=== PATIENT | female | born 1995 | race Caucasian/White ===

== ENCOUNTER 2018-02-17 16:30 | Emergency (ER) | payer MEDICAID, OTHER ==
[~2018-02-17] VITALS: Ht 152.4 cm; Wt 95.3 kg
--- NOTE | 2018-02-17 16:53 | PHYS DOC ---
Adult General Chief Complaint Chief Complaint: SEIZURE HPI HPI Patient is a 22 year old female who presents with seizure. Patient has a history of seizures. It was reported to EMS that patient has been off of her meds for about one month. Patient was riding in a car with her mother at the time of event. She was incontinent. Mother is not present at time of initial visit. Patient alert and confused. He remained somnolent at this time. Review of Systems Review of Systems Neurologic: Reports headache, generalized tonic-clonic seizure prior to arrival All other systems were unable to be reviewed due to patient's altered mental status. Allergies Allergies Allergies Coded Allergies Type Severity Reaction Last Updated Verified No Known Drug Allergies 02/17/18 No Physical Exam Physical Exam Constitutional: Well developed, well nourished, no acute distress, non-toxic appearance. [] HENT: Normocephalic, atraumatic Eyes: PERRLA, EOMI, conjunctiva normal, no discharge. [] Neck: Normal range of motion, no tenderness, supple, no stridor. [] Cardiovascular:Heart rate regular rhythm, no murmur [] Lungs & Thorax: Bilateral breath sounds clear to auscultation [] Abdomen: Bowel sounds normal, soft, no tenderness, no masses, no pulsatile masses. [] Skin: Warm, dry, no erythema, no rash. [] Neurologic: Alert and oriented X 3, normal motor function, normal sensory function, no focal deficits noted. [] Psychologic: Affect normal, judgement normal, mood normal. [] Current Patient Data Vital Signs Vital Signs Date Time Temp Pulse Resp B/P (MAP) Pulse Ox O2 Delivery O2 Flow Rate FiO2 02/17/18 19:04 90 16 98 02/17/18 16:31 98.4 148/65 (92) Room Air 98.4 EKG EKG [] Radiology/Procedures Radiology/Procedures [] Course & Med Decision Making Course & Med Decision Making Pertinent Labs and Imaging studies reviewed. (See chart for details) Patient alert and oriented. Normal mentation. Patient reports she ran out of her prescription. She has an appointment in 2 days with her PCP. Plan: tegretol rx, f/u with PCP, return precautions reviewed Tomasa Disclaimer Tomasa Disclaimer This electronic medical record was generated, in whole or in part, using a voice recognition dictation system. Departure Departure Impression: Primary Impression: Seizure Disposition: HOME, SELF-CARE Condition: IMPROVED Referrals: UNKNOWN PCP NAME (PCP) Patient Instructions: Seizure, Adult Scripts Carbamazepine (TEGRETOL) 200 Mg Tablet 1000 MG PO BID for 5 Days, #50 TAB Prov: OSCAR DAVIS APRN 02/17/18 OSCAR DAVIS APRN Feb 17, 2018 16:53
[2018-02-17 19:04] VITALS: BP 162/60
[2018-02-17] MEDS ORDERED: CARB200T PO (19:15)
== END 2018-02-17 19:21 | disposition home or self-care (01) ==
LOC: ER 16:30 → EDSEX 16:30 → ER 19:21
DX: R56.9 Unspecified convulsions (principal); R41.0 Disorientation, unspecified
CPT/HCPCS: 99283

== ENCOUNTER 2019-06-26 14:51 | Emergency (ER) | payer OTHER ==
[~2019-06-26] VITALS: Ht 149.9 cm; Wt 95.3 kg
[~2019-06-26 14:51] MED LIST: CARB200T PO
[2019-06-26 15:16] LABS: BILIRUBIN,URINE NEGATIVE (NEG); CLARITY,URINE CLEAR; COLOR,URINE YELLOW; NITRITE,URINE NEGATIVE (NEG); PROTEIN,URINE NEGATIVE (NEG-TRACE)
[2019-06-26 15:22] LABS: BACTERIA,URINE MANY /HPF (0-FEW); RBC,URINE 0 /HPF (0-2); SQUAMOUS EPITHELIAL CELL,UR MANY /LPF
[2019-06-26] MEDS ORDERED: cefTRIAXone IV Push 1 GM VIAL. IVP ONE (15:29)
[2019-06-26] MEDS: cefTRIAXone IM 250 MG VIAL IM ONE (15:30)
[2019-06-26] MEDS: AZITHROMYCIN 250 MG TABLET. PO ONE (15:32)
--- NOTE | 2019-06-26 15:40 | PHYS DOC ---
Past Medical History Past Medical History: Seizure Additional Past Medical Histor: STD (MARIANNE JORDAN APRN) Past Surgical History: No Surgical History (MARIANNE JORDAN APRN) Alcohol Use: None Drug Use: None (MARIANNE JORDAN APRN) Adult General Chief Complaint Chief Complaint: SEXUALLY TRANSMITTED DISEASE HPI HPI See AbovePatient is a 23 year old female, accompanied by her cousin, who p resents to the ER with complaints of irregular vaginal discharge and vaginal itching for the last week. Pt states that she thinks she has bacterial vaginosis, but could also have a STI. She denies any fever, abdominal pain, back pain, dysuria, increased urinary frequency, or hematuria. She denies any irregular vaginal odor or pain. She denies taking any antibiotics recently or any new detergents, soaps, or perfumes. All other ROS is neg unless otherwise noted in HPI. (MARIANNE JORDAN APRN) Review of Systems Review of Systems Constitutional: Denies fever or chills [] GI: Denies abdominal pain, nausea, vomiting, bloody stools or diarrhea [] : Denies dysuria or hematuria; see HPI [] Musculoskeletal: Denies back pain Integument: Denies rash or skin lesions [] Neurologic: Denies headache, focal weakness or sensory changes [] Complete systems were reviewed and found to be within normal limits, except as documented in this note. (MARIANNE JORDAN APRN) Current Medications Current Medications Current Medications Medications (Trade) Dose Ordered Sig/Baljeet Start Time Stop Time Status Last Admin Dose Admin Azithromycin (Zithromax) 1,000 mg 1X ONCE 06/26/19 15:30 06/26/19 15:31 DC 06/26/19 15:32 1,000 MG Ceftriaxone Sodium (Rocephin Im) 250 mg 1X ONCE 06/26/19 15:30 06/26/19 15:31 DC 06/26/19 15:30 250 MG Ceftriaxone Sodium (Rocephin) 1 gm STK-MED ONCE 06/26/19 15:29 06/26/19 15:29 DC (KUNAL MARIANO DO) Allergies Allergies Allergies Coded Allergies Type Severity Reaction Last Updated Verified No Known Drug Allergies 02/17/18 No (KUNAL MARIANO DO) Allergies See Above (MARIANNE JORDAN APRN) Physical Exam Physical Exam Constitutional: Well developed, well nourished, no acute distress, non-toxic appearance, obese[] HENT: Normocephalic, atraumatic, bilateral external ears normal, nose normal. [] Eyes: PERRLA, EOMI, conjunctiva normal, no discharge. [] Neck: Normal range of motion, no stridor. [] Lungs & Thorax: Respirations even and unlabored, no retractions, no respiratory distress Pelvic Exam: Guest Services Representative present Bessy VALENTIN Abdomen: Nontender, soft External Genitalia: Erythema of bilateral vulva consistent with vulvar dermatitis Speculum: Normal vaginal mucosa, thick, white, malodorous cervical discharge Bimanual: No adnexal masses or tenderness, No CMT Skin: Warm, dry, no erythema, no rash. [] Back: No CVA tenderness. [] Extremities: No cyanosis, ROM intact, no edema. [] Neurologic: Alert and oriented X 3, no focal deficits noted. [] Psychologic: Affect normal, judgement normal, mood normal. [] (MARIANNE JORDAN APRN) Current Patient Data Vital Signs Vital Signs Date Time Temp Pulse Resp B/P (MAP) Pulse Ox O2 Delivery O2 Flow Rate FiO2 06/26/19 15:10 98.3 74 17 116/59 (78) 97 Room Air 98.3 (KUNAL MARIANO DO) Lab Values Laboratory Tests Test 06/26/19 15:00 06/26/19 15:05 Urine Collection Type Unknown Urine Color Yellow Urine Clarity Clear Urine pH 8.0 Urine Specific [place] 1.010 Urine Protein Negative mg/dL (NEG-TRACE) Urine Glucose (UA) Negative mg/dL (NEG) Urine Ketones (Stick) Negative mg/dL (NEG) Urine Blood Negative (NEG) Urine Nitrite Negative (NEG) Urine Bilirubin Negative (NEG) Urine Urobilinogen Dipstick 1.0 mg/dL (0.2 mg/dL) Urine Leukocyte Esterase Moderate (NEG) Urine RBC 0 /HPF (0-2) Urine WBC 5-10 /HPF (0-4) Urine Squamous Epithelial Cells Many /LPF Urine Bacteria Many /HPF (0-FEW) Urine Mucus Slight /LPF POC Urine HCG, Qualitative Borderline hcg level Microbiology 06/26/19 Wet Prep - Final, Complete (KUNAL MARIANO DO) EKG EKG [] (MARIANNE JORDAN APRN) Radiology/Procedures Radiology/Procedures [] (MARIANNE JORDAN APRN) Course & Med Decision Making Course & Med Decision Making Pertinent Labs and Imaging studies reviewed. (See chart for details) Patient is a 23-year-old female presented to the emergency room with complaints of irregular vaginal discharge, vaginal itching for the last week. She was treated for suspected gonorrhea or chlamydia infection with 1 g of by mouth Zithromax and 250 mg of IM Rocephin. Patient was advised that the results of gonorrhea and chlamydia testing will not be available for 48 hours. UA is most likely contaminated as patient does not have any symptoms of a UTI . Her urine test was inconclusive, the patient was encouraged to take another urine test in 1 or 2 days. Prescription was written for Flagyl. Follow-up with her primary care doctor next week. Return to the ER if symptoms worsen. [] (MARIANNE JORDAN APRN) Dragon Disclaimer Dragon Disclaimer This electronic medical record was generated, in whole or in part, using a voice recognition dictation system. (MARIANNE JORDAN APRN) Departure Departure Impression: Primary Impression: BV (bacterial vaginosis) Additional Impressions: Dermatitis of vulva Possible , not yet confirmed Contact with and (suspected) exposure to infections with a predominantly sexual mode of transmission Disposition: 01 HOME, SELF-CARE Condition: STABLE Referrals: RAMIRO PERRY MD (PCP) Patient Instructions: ABCs of , Bacterial Vaginosis, [id number], Perianal Dermatitis Additional Instructions: Fill the prescriptions and use as directed. Repeat a urine test in 1-2 days. Recommend that you go to your local health department for comprehensive sexually transmitted disease testing. You have been treated for a suspected gonorrhea and chlamydia. Avoid having intercourse until the results of gonorrhea and chlamydia testing are available, these results will not be available for 48 hours. If one or both of these tests is positive, you need to refrain from intercourse for approximately 1 week following the treatment of any current partners. Follow-up with your primary care doctor if symptoms persist, return to ER symptoms worsen. Scripts Hydrocortisone Valerate (HYDROCORTISONE VALERATE) 15 Gm Cream..g. 1 SHWETHA TP BID PRN for ITCHING for 7 Days, #30 GM 0 Refills 2% hydrocortisone ointment Prov: MARIANNE JORDAN APRN 06/26/19 Metronidazole (METRONIDAZOLE) 500 Mg Tablet 1 TAB PO BID for 7 Days, #14 TAB 0 Refills Prov: MARIANNE JORDAN NAIL KEGGER 06/26/19 Attending Signature Attending Signature I have reviewed the PA/HAND TAPPER's note and plan of care. I was available for consultation as needed during the patient's visit in the emergency department. I agree with the clinical impression, plan, and disposition. (KUNAL MARIANO DO) Problem Qualifiers MARIANNE JORDAN APRN Jun 26, 2019 15:40 KUNAL MARIANO DO Jun 26, 2019 16:48
[2019-06-26] MEDS ORDERED: METR-34 PO (16:24)
[2019-06-26] MEDS ORDERED: HYDR15CR20 TP (16:24)
[2019-06-26 16:42] VITALS: BP 116/54
[2019-06-28 19:09] LABS: GC PROBE Negative (Negative)
== END 2019-06-26 16:45 | disposition home or self-care (01) ==
LOC: ER 14:51
DX: N76.0 Acute vaginitis (principal); B96.89 Other specified bacterial agents as the cause of diseases classified elsewhere; N90.89 Other specified noninflammatory disorders of vulva and perineum; Z20.2 Contact with and (suspected) exposure to infections with a predominantly sexual mode of transmission
CPT/HCPCS: 81001; 81025; 87086; 87491; 87591; 96372; 99284; J0696; Q0111; Q0144

== ENCOUNTER 2019-09-10 10:44 | Emergency (ER) | payer OTHER ==
[~2019-09-10 10:44] MED LIST changes: +HYDR15CR20 TP; +METR-34 PO
[2019-09-10] MEDS ORDERED: ONDANSETRON ODT 4 MG TAB.RAPDIS. PO ONE (11:30)
[2019-09-10] MEDS ORDERED: ONDANSETRON ODT 4 MG TAB.RAPDIS. ONE (11:51)
[2019-09-10 13:16] LABS: INFLUENZA A PATIENT NEGATIVE (NEGATIVE); INFLUENZA B PATIENT NEGATIVE (NEGATIVE)
[2019-09-10 14:01] LABS: CLARITY,URINE CLEAR; COLOR,URINE AMBER
[2019-09-10 14:02] LABS: BACTERIA,URINE FEW /HPF (0-FEW); BILIRUBIN,URINE SMALL (NEG); NITRITE,URINE NEGATIVE (NEG); PROTEIN,URINE NEGATIVE (NEG-TRACE); RBC,URINE 0 /HPF (0-2); SQUAMOUS EPITHELIAL CELL,UR FEW /LPF
== END 2019-09-10 13:35 | disposition home or self-care (01) ==
LOC: ER 10:44
DX: O21.9 Vomiting of pregnancy, unspecified (principal); R82.71 Bacteriuria; R05 Cough; R09.89 Other specified symptoms and signs involving the circulatory and respiratory systems; O99.511 Diseases of the respiratory system complicating pregnancy, first trimester; Z3A.12 12 weeks gestation of pregnancy
CPT/HCPCS: 81001; 87086; 87804; 99283